=== PATIENT | male | born 1965 | race Caucasian/White ===

== ENCOUNTER 2021-07-02 21:18 | Observation (INO) ==
[2021-07-03] MEDS ORDERED: Naloxone 0.4 MG/ML INJ IVP PRN (00:26)
[2021-07-03] MEDS ORDERED: Melatonin 3 MG TABLET PO PRN (00:26)
[2021-07-03] MEDS ORDERED: Perflutren Lipid Microsphere 1.3 ML in 0.9 % Sodium Chloride 8.7 ML IVP PRN (01:02)
[2021-07-03] MEDS ORDERED: Heparin 25,000UNIT/250ML 1/2NS 25,000 UNIT/250 ML IV.SOLN IVC SCH (01:15)
[2021-07-03] MEDS ORDERED: *HR* Heparin 5,000 UNIT/ML VIAL IVP PRN ×2 (01:15)
[2021-07-03] MEDS: Nicotine 21 MG PATCH.TD24 TD SCH (02:09)
[2021-07-03] MEDS: Aspirin 81 MG TAB.CHEW PO SCH ×2 (09:12→10:18)
[2021-07-03 10:05] LABS: Basophils # 0.1 K/mcL (0.0-0.2); Eosinophils # 0.3 K/mcL (0.0-0.6); Eosinophils % 3.3 %; Hematocrit 50.3 % (37.5-50.1); Hemoglobin 16.7 g/dL (12.9-16.9); Immature Granulocytes % 0.5 % (0-4); Lymphocytes # 2.4 K/mcL (0.6-4.6); Lymphocytes % 30.8 %; Mean Corpuscular HGB Conc 33.2 g/dL (31.6-35.5); Mean Corpuscular Hemoglobin 30.1 pg (28.0-33.3); Mean Corpuscular Volume 90.6 fL (83.0-100.0); Mean Platelet Volume 10.7 fL (9.4-12.4); Monocytes # 0.6 K/mcL (0.0-1.3); Monocytes % 7.3 %; Neutrophils # 4.4 K/mcL (1.6-8.9); Platelet Count 209 K/mcL (140-400); Red Blood Count 5.55 M/mcL (4.19-5.50); Red Cell Distribution Width 13.1 % (11.5-14.5); Segmented Neutrophils % 57.1 %; White Blood Count 7.8 K/mcL (4.3-11.1)
[2021-07-03 10:12] LABS: Heparin anti-factor XA UFH 0.16 IU/mL (0.30-0.70)
[2021-07-03 10:28] LABS: Alanine Aminotransferase 21 Units/L (7-52); Albumin 4.5 g/dL (3.5-5.7); Albumin/Globulin Ratio 1.6 (1.1-2.2); Alkaline Phosphatase 78 Units/L (34-104); Aspartate Amino Transferase 19 Units/L (13-39); BUN/Creatinine Ratio 15 (6-26); Bilirubin,Total 0.7 mg/dL (0.3-1.0); Blood Urea Nitrogen 14 mg/dL (6-20); Carbon Dioxide 30 mEq/L (23-29); Chloride 102 mEq/L (98-107); Globulin 2.8 g/dL (2.4-3.5); Glucose 90 mg/dL (70-105); Magnesium 2.1 mg/dL (1.6-2.6); Osmolality,Calculated 284 (280-300); Phosphorous 3.1 mg/dL (2.7-4.5); Potassium 4.7 mEq/L (3.5-5.1); Sodium 137 mEq/L (136-145); Total Protein 7.3 g/dL (6.4-8.9); Troponin I 0.42 ng/mL (< 0.04); eGFR For African Americans > 60 (> 60); eGFR For Non-African Americans > 60 (> 60)
[2021-07-03 11:01] LABS: Prothrombin Time 11.2 Seconds (9.4-12.1)
[2021-07-03] MEDS ORDERED: Heparin 1,000 UNITS/500 mL 500 ML ONE (14:49)
[2021-07-03] MEDS ORDERED: *HR* Heparin 10,000 UNIT/10 ML VIAL ONE (14:49)
[2021-07-03] MEDS ORDERED: ISOVUE-370 200 ML INFUS..BTL ONE ×2 (14:50→15:41)
[2021-07-03] MEDS ORDERED: 0.9 % Sodium Chloride 2,000 ML ONE (14:50)
[2021-07-03] MEDS ORDERED: Nitroglycerin 1,000 MCG/5 ML VIAL IV ONE (14:50)
[2021-07-03] MEDS ORDERED: *HR* Midazolam HCl 2 MG/2 ML VIAL ONE ×2 (15:02→15:36)
[2021-07-03] MEDS ORDERED: *HR* FentaNYL (PF) 100 MCG/2 ML VIAL ONE (15:02)
[2021-07-03] MEDS ORDERED: *HR* Bivalirudin 250 MG VIAL IVC ONE (15:32)
[2021-07-03] MEDS ORDERED: *HR* Ticagrelor 90 MG TABLET ONE (15:50)
[2021-07-03] MEDS ORDERED: Nitroglycerin 0.4 MG TAB.SUBL SL PRN (16:18)
[2021-07-03] MEDS: *HR* Ticagrelor 90 MG TABLET PO SCH (21:14)
[2021-07-04] MEDS: Nicotine 21 MG PATCH.TD24 TD SCH (01:04)
[2021-07-04 01:58] LABS: Basophils # 0.1 K/mcL (0.0-0.2); Basophils % 0.9 %; Eosinophils # 0.3 K/mcL (0.0-0.6); Eosinophils % 3.8 %; Hematocrit 46.7 % (37.5-50.1); Hemoglobin 15.9 g/dL (12.9-16.9); Immature Granulocytes % 0.3 % (0-4); Lymphocytes # 2.5 K/mcL (0.6-4.6); Lymphocytes % 28.4 %; Mean Corpuscular Hemoglobin 30.8 pg (28.0-33.3); Mean Corpuscular Volume 90.5 fL (83.0-100.0); Monocytes # 0.6 K/mcL (0.0-1.3); Monocytes % 6.4 %; Neutrophils # 5.3 K/mcL (1.6-8.9); Platelet Count 213 K/mcL (140-400); Red Blood Count 5.16 M/mcL (4.19-5.50); Segmented Neutrophils % 60.2 %; White Blood Count 8.8 K/mcL (4.3-11.1)
[2021-07-04 02:14] LABS: BUN/Creatinine Ratio 18 (6-26); Blood Urea Nitrogen 15 mg/dL (6-20); Calcium 9.4 mg/dL (8.6-10.3); Carbon Dioxide 23 mEq/L (23-29); Chloride 105 mEq/L (98-107); Chol/HDL Ratio 6.9 (0-4.9); Cholesterol 193 mg/dL (< 200); Glucose 114 mg/dL (70-105); HDL Cholesterol 28 mg/dL (40-59); Osmolality,Calculated 284 (280-300); Potassium 4.3 mEq/L (3.5-5.1); Sodium 136 mEq/L (136-145); Triglycerides 581 mg/dL (< 150); eGFR For African Americans > 60 (> 60); eGFR For Non-African Americans > 60 (> 60)
[2021-07-04 02:27] LABS: LDL Cholesterol,Direct 111 mg/dL (75-193)
[2021-07-04] MEDS: *HR* Ticagrelor 90 MG TABLET PO SCH (07:59)
[2021-07-04] MEDS: Aspirin 81 MG TAB.CHEW PO SCH (07:59)
[2021-07-04 10:41] VITALS: BP 123/77; PULSE 59; TEMP 97.6; O2SAT 96
== END 2021-07-04 12:23 | disposition home or self-care (01) ==
LOC: 3BNU → SUATTDRO 23:42
PROVIDERS: ADMIT Student in an Organized Health Care Education/Training Program; ATTEND Registered Nurse